=== PATIENT | male | born 1980 | race Caucasian/White ===

== ENCOUNTER 2017-07-31 05:56 | Day surgery (SDC) | payer MEDICAID ==
[2017-07-31] MEDS ORDERED: ceFAZolin 2 GM/SWFI 2 GM/20 ML SYR IVP ONE (06:38)
[2017-07-31] MEDS ORDERED: BUPIVACAINE 0.5% 30 ML SDV ONE (06:38)
[2017-07-31] MEDS ORDERED: ACETAMINOPHEN 500 MG TAB PO ONE (06:38)
[2017-07-31] MEDS ORDERED: LIDOCAINE 1% 2 ML INJ ID PRN (06:39)
[2017-07-31] MEDS ORDERED: LR 1,000 ML IV ONE (06:39)
--- NOTE | 2017-07-31 07:06 | PDHPUP ---
History & Physical Update H&P update statement: This history and physical update is based on an assessment of the patient which was completed after admission or registration (within 24 hours), but prior to the surgery/procedure. H&P update: H&P reviewed & patient examined, no change in patient's condition since H&P completed
[2017-07-31] MEDS ORDERED: PROPOFOL/EMULSION 500 MG/50 ML BOTTLE IV ONE (07:15)
[2017-07-31] MEDS ORDERED: fentaNYL 100 MCG/2 ML INJ ONE ×2 (07:15→09:29)
[2017-07-31] MEDS ORDERED: MIDAZOLAM 2 MG/2 ML VIAL ONE (07:15)
[2017-07-31] MEDS ORDERED: LIDOCAINE 2% 5 ML SDV ONE (07:27)
[2017-07-31] MEDS ORDERED: PROPOFOL 200 MG/20 ML VIAL ONE (07:27)
[2017-07-31] MEDS ORDERED: oxyCODONE IR 5 MG TAB PO PRN (07:40)
[2017-07-31] MEDS ORDERED: HYDROCODONE/APAP 5/325 TAB PO PRN (07:40)
[2017-07-31] MEDS ORDERED: ONDANSETRON 4 MG/2 ML VIAL IVP PRN (07:40)
[2017-07-31] MEDS ORDERED: NALOXONE HCL 0.4 MG/ML INJ IVP PRN (07:40)
[2017-07-31] MEDS ORDERED: LR 500 ML IV PRN (07:40)
[2017-07-31] MEDS ORDERED: ALBUTEROL 3 ML DEYVIAL IH PRN (07:40)
--- NOTE | 2017-07-31 07:40 | PDANEPAE ---
ANE Past Medical History - Cardiovascular History Hx Hypertension: No Hx Arrhythmias: No Hx Chest Pain: No Hx Coronary Artery / Peripheral Vascular Disease: No Hx CHF / Valvular Disease: No Hx Palpitations: No - Pulmonary History Hx COPD: No Hx Asthma/Reactive Airway Disease: No Hx Recent Upper Respiratory Infection: No Hx Oxygen in Use at Home: No Hx Sleep Apnea: No Sleep Apnea Screening Result - Last Documented: Negative - Neurologic History Hx Cerebrovascular Accident: No Hx Seizures: No Hx Dementia: No - Endocrine History Hx Diabetes: No - Renal History Hx Renal Disorders: No - Liver History Hx Hepatic Disorders: Yes Hepatic History Comment: CHRONIC HEPATITIS C - DXd 2007 - TAKES MAVYRET - Neurological & Psychiatric Hx Hx Neurological and Psychiatric Disorders: No - Cancer History Hx Cancer: No - Congenital Disorder History Hx Congenital Disorders: No - GI History Hx Gastrointestinal Disorders: No - Other Health History Other Health History: NEG - Chronic Pain History Chronic Pain: Yes (L ARM) - Surgical History Prior Surgeries: SKIN GRAFTS TEEN ANE Review of Systems Review of Systems: - Exercise capacity METS (RN): 5 METS ANE Patient History - Allergies Allergies/Adverse Reactions: No Known Allergies Allergy (Unverified 07/26/17 14:25) - Home Medications Home Medications: Gabapentin 07/26/17 [Last Taken 07/24/17] Mavyret 07/26/17 [Last Taken 07/30/17 18:00] - NPO status NPO Since - Liquids (Date): 07/30/17 NPO Since - Liquids (Time): 00:59 NPO Since - Solids (Date): 07/30/17 NPO Since - Solids (Time): 18:00 - Smoking Hx Smoking Status: Former smoker - Family Anes Hx Family Hx Anesthesia Complications: NEG ANE Labs/Vital Signs - Vital Signs Blood Pressure: 110/67 Heart Rate: 63 Respiratory Rate: 16 O2 Sat (%): 93 Height: 180.34 cm Weight: 111.13 kg ANE Physical Exam - Airway Neck exam: FROM Mallampati Score: Class 1 Mouth exam: normal dental/mouth exam - Pulmonary Pulmonary: no respiratory distress, no rales or rhonchi, clear to auscultation - Cardiovascular Cardiovascular: regular rate and rhythym, no murmur, rub, or gallop - ASA Status ASA Status: III ANE Anesthesia Plan Anesthesia Plan: GA w LMA
--- NOTE | 2017-07-31 09:29 | POSTANESTH ---
Post Anesthetic Evaluation Cardiovascular Status: Normal, Stable, Similar to Pre-Op Cond Respiratory Status: Normal, Stable, Similar to Pre-op Cond. Level of Consciousness/Mental Status: Mildly Sleepy, Arousable Pain Control: Adequate, Prn Tx Ordered Nausea/Vomiting Control: Adequate, Prn Tx Ordered Complications Possibly Related to Anesthesia: None Noted
[2017-07-31] MEDS: fentaNYL 100 MCG/2 ML INJ IVP PRN ×2 (09:31→09:48)
[2017-07-31] MEDS ORDERED: HYDROCODONE/APAP 10/325 TAB PO PRN (09:51)
[2017-07-31] MEDS ORDERED: KETOROLAC 30 MG/1 ML SDV IVP ONE (09:51)
--- NOTE | 2017-07-31 09:58 | POSTOPPROG ---
Post Op Note Date of Operation: 07/31/17 Surgeon: Nelson Benedict [employer] Professor: Betty Mcdonough Anesthesia: GET(General Endotracheal) Pre-op Diagnosis: Left ulnar neuropathy Post-op Diagnosis: same Procedure: Left ulnar nerve transposition Inf/Abcess present in the surg proc area at time of surgery?: No Depth: Organ Space EBL: Minimal SOAP Progress Note Assessment/Plan: Assessment: Plan: S: Patient in PACU. Stale, somnolent and still waking up. O: NAD, VSS Following commands PERRL, EOMI CN II-XII grossly intact Left arm in sling Left hand with good strength 5/5, fingers warm, pink Numbness in 4th and 5th digit as was pre-op Incision c/d/i- dressed in sling A: 36 yo male sp left ulnar nerve transposition for ulnar neuropathy P: -Discharge from PACU when criteria met -No lifting more than 10 pounds with left arm -May shower on 09/01 -Keep in sling for 3 days -Script left by chart -Advance diet as tolerated -Seen by Dr. Benedict in PACU as well 07/31/17 09:55 07/31/17 09:56 Objective: Vital Signs Temp Pulse Resp BP Pulse Ox 36.6 C 63 16 100/64 12 L 07/31/17 09:09 07/31/17 07:40 07/31/17 09:31 07/31/17 09:31 07/31/17 09:36
[2017-07-31] MEDS ORDERED: KETOROLAC 30 MG/1 ML SDV ONE (10:04)
[2017-07-31 10:38] VITALS: BP 104/54
--- NOTE | 2017-08-01 07:45 | GOP ---
[f rep st] OPERATIVE REPORT DATE OF OPERATION: 07/31/2017 SURGEON: Nelson Benedict MD NEUROSURGEON: Nelson Benedict MD. BMET: None. ANESTHESIA: General endotracheal. 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 PROCEDURE PERFORMED: Left ulnar nerve neurolysis and submuscular transposition. FINDINGS: Successful ulnar nerve transposition. SPECIMENS: There were no specimens. ESTIMATED BLOOD LOSS: 10 cc. INDICATIONS: The patient is a 36-year-old man who has had significant atrophy of his ulnar innervate d muscles and numbness in the ulnar distribution for quite some time. Recent EMG was performed showi ng severe left ulnar neuropathy. I discussed with him the possibility of surgical decompression and transposition and he agreed to proceed electively. DESCRIPTION OF PROCEDURE: After informed consent was obtained from the patient, the patient was brou ght to the operating room and placed in a supine position on the operating table. A formal time-out was performed, identifying the patient by name, medical record number and date of . Preoperativ e antibiotics were given. The endotracheal tube was placed and general endotracheal anesthesia was s moothly induced. The patient's arm was extended onto a hand table and a tourniquet was placed on the upper arm. The arm was then prepped and draped in a normal sterile fashion. A curvilinear incision was marked over the cubital tunnel, just behind the medial epicondyle. The arm was then exsanguinat ed and the tourniquet was brought up to 250 mmHg. At this point, 20 cc of 0.25% Marcaine with epinep hrine was infiltrated in the skin for hemostasis and analgesia. The skin incision was made using a 1 0 blade, and the subcutaneous tissues were dissected using monopolar electrocautery. We then used sh molly dissection to dissect down to the muscular fascia, with care to preserve several small branches o f the medial antebrachial cutaneous nerve. The medial epicondyle was visualized and the muscle fasci a, both in the upper arm and forearm was then visualized. The ulnar nerve was then localized proxima lly near the intermuscular septum between the triceps and biceps. This nerve was then dissected 360 degrees and a vessel loop was placed around the nerve. We continued to follow this down through the cubital tunnel where there was extensive scar tissue. External neurolysis was performed and the epin eurium was opened. The nerve was then followed down toward the forearm and completely decompressed. At this point, the muscle fascia over the flexor carpi ulnaris and the flexor pronator muscle was op ened and the fascial cups were kept for a sling for the nerve. The intermuscular septum between the flexor pronator and the flexor carpi ulnaris was completely removed, such that it would not be compre ssive on the nerve after it was transposed. More proximally, the intermuscular septum was also remov ed between the biceps and the triceps, again giving wide canal for the nerve. The proximal portions of the flexor carpi ulnaris and the flexor pronator were then opened leaving a groove through the mus fuad for which the nerve could travel. The motor branch of the ulnar nerve was also neurolysed and wa s seen coursing toward the flexor carpi ulnaris. At this point, the nerve was placed into the groove and the arm was ranged throughout the full range of motion, showing that the nerve was free. There were a few bands of connective tissue proximally near the triceps which were also divided, completely allowing the nerve to travel freely. At this point, the nerve appeared to be in good position and [facility] fascial cuff was loosely closed over this area to keep the nerve from subluxing back into its posi tion posterior to the medial epicondyle. At this point, the wound was copiously irrigated using baci tracin irrigation. The deep dermis was closed using interrupted 2-0 Vicryl, and the skin was closed using a subcuticular 4-0 Monocryl. Steri-Strips were placed and an Crow wrap dressing was placed and the arm was placed in a sling. The patient was then awakened in the operating room, transferred to [facility] PACU in stable condition. There were no operative complications. I was scrubbed and present for the entire procedure. All sponge and needle counts were correct at the end of the case. FLUIDS AND URINE OUTPUT: Per the Anesthesia record. DRAINS: There were no drains. /[id number]/MODL
== END 2017-07-31 11:40 | disposition home or self-care (01) ==
LOC: FSGY 05:56
PROVIDERS: ATTEND Neurological Surgery
PROC: 01S40ZZ Reposition Ulnar Nerve, Open Approach (ICD-10-PCS; principal; 2017-07-31 07:15)
PROC: 01Q40ZZ Repair Ulnar Nerve, Open Approach (ICD-10-PCS; principal; 2017-07-31 07:15)
DX: G56.12 Other lesions of median nerve, left upper limb (principal); G56.22 Lesion of ulnar nerve, left upper limb
CPT/HCPCS: J0171; J0690; J1885; J2250; J2704; J3010